=== PATIENT | female | born 1960 | race Caucasian/White ===

== ENCOUNTER → 2017-04-06 07:48 | Outpatient (CLI) | payer MEDICAID ==
[2017-04-06 08:44] LABS: APTT 33.1 SECONDS (22.8-39.4); INR 0.9 (0.85-1.17)
[2017-04-06 08:45] LABS: BASOPHILS 0.6 % (0-2); EOSINOPHILS 4.4 % (0-7); HEMATOCRIT 41.6 % (36.0-48.0); HEMOGLOBIN 13.5 g/dL (12-16); IMMATURE GRANULOCYTES 0.3 % (0-5); LYMPHOCYTES 34.4 % (15-50); MCH 31.9 pg (26.0-34.0); MCHC 32.5 g/dL (31.0-37.0); MCV 98.3 fL (80.0-100.0); MEAN PLATELET VOLUME 9.1 fL (7.4-10.4); MONOCYTES 5.9 % (2-11); NEUTROPHILS 54.4 % (40-80); PLATELET COUNT 338 10x3/uL (130-400); RBC 4.23 10x6/uL (4.00-5.40); WBC 7.8 10x3/uL (4.8-10.8)
[2017-04-06 08:48] LABS: % SATURATION 27 % (15-55); IRON 80 ug/dl (35-150); TOTAL IRON BIND CAPACITY 296 ug/dl (260-445); UNSAT IRON BIND CAPACITY 216 ug/dl (150-375)
[2017-04-06 08:59] LABS: ALBUMIN 3.9 g/dL (3.4-5.0); ALKALINE PHOSPHATASE 184 U/L (46-116); ALT (SGPT) 63 U/L (10-68); BILIRUBIN - INDIRECT 0.12 mg/dL (0.00-1.00); BILIRUBIN - TOTAL 0.15 mg/dL (0.2-1.3); CALC OSMOLALITY 280 mosm/kg (275-300); CALCIUM 9.6 mg/dL (8.5-10.1); CARBON DIOXIDE 30.6 mmol/L (21.0-32.0); CHLORIDE - SERUM 103 mmol/L (98-107); CHOL - HDL RATIO 3.9 ratio (2.3-4.1); CHOLESTEROL, TOTAL 213 mg/dL (0-200); CREATININE - SERUM 0.8 mg/dL (0.6-1.3); FERRITIN 97 ng/mL (3-244); GAMMA GT 190 U/L (5-85); GLUCOSE 103 mg/dL (74-106); HDL CHOLESTEROL 55 mg/dL (32-96); LDL CHOLESTEROL 136 mg/dL (0-100); LDL-HDL RATIO 2.5 ratio (1.5-3.5); POTASSIUM - SERUM 4.4 mmol/L (3.5-5.1); PROTEIN - SERUM 7.9 g/dL (6.4-8.2); SODIUM 140 mmol/L (136-145); TRIGLYCERIDE 111 mg/dL (30-200); UREA NITROGEN 18 mg/dL (7-18); eGFR NON AFRICAN AMERICAN 79 mL/min (90-120)
[2017-04-06 09:06] LABS: BILIRUBIN - DIRECT 0.03 mg/dL (0.00-0.30)
[2017-04-07 09:15] LABS: HAPTOGLOBIN 277 mg/dL (34-200)
[2017-04-07 10:22] LABS: FOLATE (FOLIC ACID) - SERUM 15.7 ng/mL (>3.0)
[2017-04-07 11:17] LABS: ANA REFLEX - DIRECT Negative (Negative)
[2017-04-07 12:16] LABS: ALPHA FETOPROTEIN -(TUMOR MRK) 4.6 ng/mL (0.0-8.3)
== END | disposition home or self-care (01) ==
LOC: D.LAB 07:48 → D.MRI 09:00
PROVIDERS: Internal Medicine Gastroenterology
DX: R79.89 Other specified abnormal findings of blood chemistry (principal); K83.9 Disease of biliary tract, unspecified